=== PATIENT | female | born 1990 | race African-American/Black ===

== ENCOUNTER 2023-10-08 19:08 | Emergency (ER) | payer OTHER ==
[~2023-10-08] VITALS: Ht 167.6 cm; Wt 68.2 kg
[2023-10-08 19:13] VITALS: TEMP 98
[2023-10-08 19:29] LABS: COVID AG,FIA SOURCE NASAL SWAB
[2023-10-08 19:40] LABS: RAPID GROUP A STREP NEGATIVE (NEGATIVE)
[2023-10-08] MEDS ORDERED: SODIUM CHLORIDE 0.9% 1,000 ML IV ONE (19:45)
[2023-10-08] MEDS ORDERED: ONDANSETRON HCL 4 MG/2 ML VIAL IVP ONE (19:45)
[2023-10-08] MEDS ORDERED: KETOROLAC TROMETHAMINE 30 MG/ML VIAL IVP ONE (19:45)
[2023-10-08 19:47] LABS: SARS-COV2 (COVID) ANTIGEN,FIA Negative (Negative)
[2023-10-08 19:48] LABS: INFLUENZA TYPE A NEGATIVE FOR TYPE A (NEGATIVE); INFLUENZA TYPE B NEGATIVE FOR TYPE B (NEGATIVE)
[2023-10-08 19:49] LABS: EOSINOPHILS % (AUTO) 2.2 % (1.0-6.0); HEMOGLOBIN 12.3 g/dL (12.0-16.0); LYMPHOCYTES # (AUTO) 2.1 K/uL (1.0-4.8); LYMPHOCYTES % (AUTO) 39.9 % (22.0-44.0); MEAN CORPUSCULAR HEMOGLOBIN 30.2 pg (26.0-34.0); MEAN CORPUSCULAR HGB CONC 33.3 G/dL (31.0-37.0); MEAN CORPUSCULAR VOLUME 91 fL (80-100); MONOCYTES # (AUTO) 0.6 K/uL (0.1-1.0); MONOCYTES % (AUTO) 10.9 % (2.0-9.0); NEUTROPHILS # (AUTO) 2.4 K/uL (1.8-7.7); PLATELET COUNT (AUTO) 255 K/uL (150-450); RED BLOOD CELL COUNT(AUTO) 4.08 MIL/uL (4.00-5.20); RED CELL DISTRIBUTION WIDTH 14.4 % (11.5-14.5); WHITE BLOOD COUNT (AUTO) 5.2 K/uL (4.5-11.0)
[2023-10-08 19:56] VITALS: BP 118/73; PULSE 97; RESP 14
[2023-10-08 19:59] LABS: ANION GAP 8 mmol/L (8-16); CALCIUM, TOTAL 8.9 mg/dL (8.8-10.5); CARBON DIOXIDE 28 mmol/L (22-29); CHLORIDE 104 mmol/L (98-107); CREATININE 0.89 mg/dL (0.60-1.30); GLOMERULAR FILTR. RATE CALC > 60 mL/min (>60); GLUCOSE,RANDOM 97 mg/dL (70-110); POTASSIUM 3.6 mmol/L (3.5-5.1); SODIUM SERUM 140 mmol/L (136-145); UREA NITROGEN, BLOOD 15 mg/dL (7-18)
[2023-10-08] MEDS ORDERED: ACETAMINOPHEN/CODEINE 300-30 MG TABLET PO ONE (21:00)
[2023-10-08] MEDS ORDERED: ONDA-104 PO (21:03)
[2023-10-08] MEDS ORDERED: IBUP-1554 PO (21:03)
[2023-10-08] MEDS ORDERED: ACET-2080 PO (21:03)
== END 2023-10-08 21:20 | disposition home or self-care (01) ==
LOC: EMS 19:11
DX: J06.9 Acute upper respiratory infection, unspecified (principal); J02.8 Acute pharyngitis due to other specified organisms; F41.9 Anxiety disorder, unspecified; F12.90 Cannabis use, unspecified, uncomplicated; Z98.890 Other specified postprocedural states; Z20.822 Contact with and (suspected) exposure to COVID-19
CPT/HCPCS: 99284; 96374; 96361; 96375; 87426; 80048; 84703; 85025; 87430; 87804; 36415; J1885; J2405; J7030